=== PATIENT | female | born 1975 | race American Indian/Alaskan Native ===

== ENCOUNTER 2016-06-25 18:52 | Emergency (ER) | payer SELFPAY ==
--- NOTE | 2016-06-25 23:14 | Emergency Department Report ---
HPI - General Chief Complaint: Extremity Problem,Nontraumatic Time Seen by Provider: 06/25/16 22:59 - HPI HPI: Patient is a 42-year-old female who presents to ED complaining on the left side Knee and foot pain. She says she has a history of heel spurs on her left knee and is usually aggravated by standing for long period of time. Patient states she stands for long period of time at work and feels pain at the end of the shift. Patient also states she has a history of rheumatoid arthritis and was diagnosed last year. Patient states her pain started about 3 days ago. Patient also states she takes blood pressure medications and nausea medication. Patient admits fever, chills, trauma or fall, nausea, vomiting, headache, blurry vision, shortness of breath, chest pain or any other problems. ED Past Medical Hx - Past Medical History Previous Medical History?: Yes Hx Hypertension: Yes Hx GERD: Yes Hx Arthritis: Yes Hx Psychiatric Treatment: Yes (bipolar,manic depression) Additional medical history: fibroids,DJD,syncope,anemia - Surgical History Past Surgical History?: Yes Additional Surgical History: fibroid surgery, tubal - Social History Smoking Status: Current Every Day Smoker Substance Use Type: None - Medications Home Medications: Home Medications Medication Instructions Recorded Confirmed Last Taken Type Hydrochlorothiazide [Hctz] 12.5 mg PO QDAY #30 capsule 09/16/15 Unknown Rx Ibuprofen [Motrin 600 MG tab] 600 mg PO Q8H PRN #30 tablet 09/16/15 Unknown Rx Lisinopril [Zestril TAB] 10 mg PO QDAY #30 tablet 09/16/15 Unknown Rx Cyclobenzaprine [Flexeril 10 MG 10 mg PO QHS #20 tablet 06/26/16 Unknown Rx TAB] Ibuprofen [Motrin] 800 mg PO Q8HR PRN #30 tablet 06/26/16 Unknown Rx Meloxicam [Mobic] 7.5 mg PO BID #20 tablet 06/26/16 Unknown Rx ED Review of Systems ROS: Stated complaint: LT SIDE BODY PAIN Other details as noted in HPI Constitutional: denies: chills, fever Eyes: denies: eye pain, eye discharge, vision change ENT: denies: ear pain, throat pain Respiratory: denies: cough, shortness of breath, wheezing Cardiovascular: denies: chest pain, palpitations Endocrine: no symptoms reported Gastrointestinal: denies: abdominal pain, nausea, diarrhea Genitourinary: denies: urgency, dysuria, discharge Musculoskeletal: arthralgia, myalgia. denies: back pain, joint swelling Skin: denies: rash, lesions, pruritus Neurological: denies: headache, weakness, numbness, paresthesias, confusion, abnormal gait Psychiatric: denies: anxiety, depression Hematological/Lymphatic: denies: easy bleeding, easy bruising Physical Exam - Physical Exam Vital Signs: Vital Signs 06/25/16 19:53 Temperature 98.7 F Pulse Rate 78 Respiratory 18 Rate Blood Pressure 157/104 O2 Sat by Pulse 100 Oximetry Physical Exam: GENERAL: Alert and oriented x3, no apparent distress, Normal Gait, atraumatic. HEAD: Head is normocephalic and a-traumatic. EYES: Extra ocular muscles are intact. Pupils are equal, round, and reactive to light and accommodation. MOUTH:Mouth is well hydrated and without lesions Patent airways. NECK: Supple. Non edematous, No carotid bruits. No lymphadenopathy or thyromegaly. LUNGS: Symetrical with respiration, No wheezing, no rales or crackles, CTAB. HEART: S1, S2 present, regular rate and rhythm without murmur, no rubs, no gallops.. EXTREMITIES/MUSCULOSKELETAL: No cyanosis, clubbing, rash, lesions or edema. Full ROM bilaterally. UE/LE Pulses 2+ bilaterally. LE and UE 5+ strength bilaterally. Straight leg negative bilaterally tenderness. no calf Tenderness bilaterally NEUROLOGIC: No focal Deficit, Cranial nerves II through XII are grossly intact. No loss of sensation, PSYCHIATRIC: Mood is congruent with affect, denies suicidal or homicidal ideations. SKIN: Warm and dry, No lesions, No ulceration or induration present. ED Course Vital Signs 06/25/16 19:53 Temperature 98.7 F Pulse Rate 78 Respiratory 18 Rate Blood Pressure 157/104 O2 Sat by Pulse 100 Oximetry ED Medical Decision Making - Medical Decision Making 39 female presents with chronic arthritis pain. ED course: Patient received Toradol and Flexeril in ED. Patient states she has not taken her blood pressure medication today. Blood pressure decreased while in ED. Discussed the patient to go home and take her blood pressure medication. Patient verbalized understanding and agrees to do just that. Discussed follow-up with furniture painter specialist she states she has an appointment [facility] with her furniture painter next month. Discussed proper rest and take medication as prescribed. Patient is in no acute distress vital signs are normal. Critical care attestation.: If time is entered above; I have spent that time in minutes in the direct care of this critically ill patient, excluding procedure time. ED Disposition Clinical Impression: Myalgia, Arthritis pain of elbow Disposition: DISCHARGED TO HOME OR SELFCARE Is pt being admited?: No Does the pt Need Aspirin: No Condition: Stable Instructions: Trigger Point Pain (ED), Musculoskeletal Pain (ED), Heat Pack Application (ED) Prescriptions: Cyclobenzaprine [Flexeril 10 MG TAB] 10 mg PO QHS #20 tablet Ibuprofen [Motrin] 800 mg PO Q8HR PRN #30 tablet PRN Reason: Pain Meloxicam [Mobic] 7.5 mg PO BID #20 tablet Referrals: PRIMARY CAREMD [Primary Care Provider] - 3-5 Days KVNG GARCIA MD [Referring] - 3-5 Days SOLOMON LOMAX MD [Referring] - 3-5 Days [facility] [Outside] - 3-5 Days [facility] [Outside] - 3-5 Days [facility] [Outside] - 3-5 Days [facility] [Outside] - 3-5 Days Forms: Accompanied Note, Work/School Release Form(ED) Time of Disposition: 00:02
[2016-06-25] MEDS ORDERED: TORADOL IM ONE (23:55)
[2016-06-25] MEDS ORDERED: FLEXERIL PO ONE (23:55)
[2016-06-26 00:01] VITALS: BP 142/99
== END 2016-06-26 00:20 | disposition home or self-care (01) ==
LOC: ED 18:52
DX: M79.1 Myalgia (principal); M25.529 Pain in unspecified elbow; I10 Essential (primary) hypertension; K21.9 Gastro-esophageal reflux disease without esophagitis
CPT/HCPCS: 96372; 99282; J1885

== ENCOUNTER 2016-11-10 08:15 | Emergency (ER) | payer SELFPAY ==
[2016-11-10 09:07] LABS: Basophils % (Auto) 1.4 % (0.0-1.8); Eosinophils % (Auto) 1.9 % (0.0-4.3); Hematocrit 30.8 % (30.3-42.9); Hemoglobin 9.8 gm/dl (10.1-14.3); Mean Corpuscular HGB Conc 32 % (30-34); Mean Corpuscular Volume 81 fl (79-97); Platelet Count 327 K/mm3 (140-440); Red Blood Count 3.79 M/mm3 (3.65-5.03); Red Cell Distribution Width 19.3 % (13.2-15.2); White Blood Count 5.5 K/mm3 (4.5-11.0)
[2016-11-10 09:14] LABS: Mean Corpuscular Hemoglobin 26 pg (28-32)
[2016-11-10 09:24] LABS: Anion Gap 17 mmol/L; BUN/Creatinine Ratio 16.66; Blood Urea Nitrogen 10 mg/dL (7-17); Calcium 8.8 mg/dL (8.4-10.2); Carbon Dioxide 23 mmol/L (22-30); Chloride 100.6 mmol/L (98-107); Glucose 101 mg/dL (65-100); Potassium 3.7 mmol/L (3.6-5.0); Sodium 137 mmol/L (137-145)
[2016-11-10 09:30] LABS: INR 0.9 (0.87-1.13)
--- NOTE | 2016-11-10 10:54 | Emergency Department Report ---
ED Chest Pain HPI - General Chief Complaint: Chest Pain Stated Complaint: CHEST PAIN Time Seen by Provider: 11/10/16 10:41 Source: patient Mode of arrival: Ambulatory Limitations: No Limitations - History of Present Illness Initial Comments: Patient is a 41-year-old female here with complaint of chest pain since Tuesday. Patient states she reached behind the couch and laid heavily on her right breast and felt chest pain. The pain is centered behind her right breast. Worse with deep breath worse with movement and worse on palpation. Denies fevers chills. She states sometimes when she takes deep breath it feels hard to breathe. She denies complaints of leg pain. Never had a blood clot in the past no history of CAD. MD Complaint: chest pain -: Gradual Onset: during rest Pain Location: right chest Pain Radiation: none Severity: moderate Severity scale (0 -10): 7 Quality: tightness Consistency: constant Improves With: nothing Treatments Prior to Arrival: none - Related Data Home Medications Medication Instructions Recorded Confirmed Last Taken Vitamin D (Nf) 5,000 units PO 1XW 11/10/16 11/10/16 Unknown Previous Rx's Medication Instructions Recorded Last Taken Type Hydrochlorothiazide [Hctz] 12.5 mg PO QDAY #30 capsule 09/16/15 1 Day Ago Rx Lisinopril [Zestril TAB] 10 mg PO QDAY #30 tablet 09/16/15 1 Day Ago Rx Cyclobenzaprine [Flexeril 10 MG 10 mg PO QHS #20 tablet 06/26/16 1 Day Ago Rx TAB] Naproxen [Naprosyn TAB] 500 mg PO BID #30 tablet 11/10/16 Unknown Rx Allergies Allergy/AdvReac Type Severity Reaction Status Date / Time adhesive tape Allergy Rash Verified 11/10/16 08:45 Heart Score - HEART Score History: Slightly suspicious EKG: Normal Age: < 45 Risk factors: 1-2 risk factors Troponin: < normal limit HEART Score: 1 - Critical Actions Critical Actions: 0-3 pts:0.9-1.7%risk of adverse cardiac event.Candidate for discharge ED Review of Systems ROS: Stated complaint: CHEST PAIN Other details as noted in HPI Comment: All other systems reviewed and negative Constitutional: denies: chills, fever Eyes: denies: eye pain, eye discharge, vision change ENT: denies: ear pain, throat pain Respiratory: denies: cough, shortness of breath, wheezing Cardiovascular: denies: chest pain, palpitations Endocrine: no symptoms reported Gastrointestinal: denies: abdominal pain, nausea, diarrhea Genitourinary: denies: urgency, dysuria, discharge Musculoskeletal: denies: back pain, joint swelling, arthralgia Skin: denies: rash, lesions Neurological: denies: headache, weakness, paresthesias Psychiatric: denies: anxiety, depression Hematological/Lymphatic: denies: easy bleeding, easy bruising ED Past Medical Hx - Past Medical History Previous Medical History?: Yes Hx Hypertension: Yes Hx GERD: Yes Hx Arthritis: Yes Hx Psychiatric Treatment: Yes (bipolar,manic depression) Additional medical history: fibroids,DJD,syncope,anemia - Surgical History Past Surgical History?: Yes Additional Surgical History: fibroid surgery, tubal - Family History Family history: no significant - Social History Smoking Status: Current Every Day Smoker Substance Use Type: Marijuana - Medications Home Medications: Home Medications Medication Instructions Recorded Confirmed Last Taken Type Hydrochlorothiazide [Hctz] 12.5 mg PO QDAY #30 capsule 09/16/15 11/10/16 1 Day Ago Rx Lisinopril [Zestril TAB] 10 mg PO QDAY #30 tablet 09/16/15 11/10/16 1 Day Ago Rx Cyclobenzaprine [Flexeril 10 MG 10 mg PO QHS #20 tablet 06/26/16 11/10/16 1 Day Ago Rx TAB] Naproxen [Naprosyn TAB] 500 mg PO BID #30 tablet 11/10/16 Unknown Rx Vitamin D (Nf) 5,000 units PO 1XW 11/10/16 11/10/16 Unknown History ED Physical Exam - General Limitations: No Limitations General appearance: alert, in no apparent distress - Head Head exam: Present: atraumatic, normocephalic - Eye Eye exam: Present: normal appearance - ENT ENT exam: Present: mucous membranes moist - Neck Neck exam: Present: normal inspection - Respiratory Respiratory exam: Present: normal lung sounds bilaterally. Absent: respiratory distress - Cardiovascular Cardiovascular Exam: Present: regular rate, normal rhythm. Absent: systolic murmur, diastolic murmur, rubs, gallop - GI/Abdominal GI/Abdominal exam: Present: soft, normal bowel sounds - Extremities Exam Extremities exam: Present: normal inspection - Back Exam Back exam: Present: normal inspection - Neurological Exam Neurological exam: Present: alert, oriented X3 - Psychiatric Psychiatric exam: Present: normal affect, normal mood - Skin Skin exam: Present: warm, dry, intact, normal color. Absent: rash ED Course Vital Signs 11/10/16 11/10/16 11/10/16 08:36 10:19 12:31 Temperature 97.6 F 98.3 F Pulse Rate 66 55 L 49 L Respiratory 16 20 Rate Blood Pressure 106/69 Blood Pressure 100/60 [Left] O2 Sat by Pulse 100 100 Oximetry 11/10/16 12:37 Temperature 97.9 F Pulse Rate 58 L Respiratory 15 Rate Blood Pressure Blood Pressure 108/74 [Left] O2 Sat by Pulse 99 Oximetry ED Medical Decision Making - Lab Data Result diagrams: 11/10/16 08:53 11/10/16 08:53 Laboratory Results - last 24 hr 11/10/16 11/10/16 11/10/16 08:53 08:53 08:53 WBC 5.5 RBC 3.79 Hgb 9.8 L Hct 30.8 MCV 81 MCH 26 L MCHC 32 RDW 19.3 H Plt Count 327 Lymph % (Auto) 43.4 H Loving % (Auto) 8.7 H Eos % (Auto) 1.9 Baso % (Auto) 1.4 Lymph # 2.4 Loving # 0.5 Eos # 0.1 Baso # 0.1 Seg Neutrophils % 44.6 Seg Neutrophils # 2.4 PT 12.6 INR 0.90 Sodium 137 Potassium 3.7 Chloride 100.6 Carbon Dioxide 23 Anion Gap 17 BUN 10 Creatinine 0.6 L Estimated GFR > 60 BUN/Creatinine Ratio 16.66 Glucose 101 H Calcium 8.8 Troponin T < 0.010 - EKG Data -: EKG Interpreted by Ar - EKG Data 11/10/16 10:57 Normal sinus rate is [address]-T wave changes. - Medical Decision Making 41-year-old female here with complaint of right-sided chest pain. Likely related to recent movement. Denies fevers chills nausea vomiting. Pain is very atypical for cardiac ischemia. Plan d-dimer as patient is not PERC rule negative. D-dimer negative second troponin negative. Plan to discharge patient home with NSAIDs. Portions of this chart were dictated with dictation software. There may be dictation errors contained within this note. Critical care attestation.: If time is entered above; I have spent that time in minutes in the direct care of this critically ill patient, excluding procedure time. ED Disposition Clinical Impression: Musculoskeletal chest pain Disposition: TO HOME OR SELFCARE Is pt being admited?: No Condition: Stable Instructions: Chest Pain (ED) Prescriptions: Naproxen [Naprosyn TAB] 500 mg PO BID #30 tablet Referrals: PRIMARY CARE, [Primary Care Provider] - 3-5 Days
--- NOTE | 2016-11-10 11:29 | XRay Report ---
AP CHEST: HISTORY: chest pain AP view of the chest demonstrates a normal mediastinal and cardiac contour with clear lungs and normal bony and soft tissue structures. IMPRESSION: Unremarkable AP chest.
[2016-11-10 15:31] VITALS: BP 114/78
== END 2016-11-10 15:31 | disposition home or self-care (01) ==
LOC: ED 08:15
DX: R07.81 Pleurodynia (principal); I10 Essential (primary) hypertension; K21.9 Gastro-esophageal reflux disease without esophagitis; F31.9 Bipolar disorder, unspecified; F17.200 Nicotine dependence, unspecified, uncomplicated; F12.10 Cannabis abuse, uncomplicated
CPT/HCPCS: 36415; 71010; 80048; 84484; 85025; 85379; 85610; 93005; 93010

== ENCOUNTER 2017-05-07 10:34 | Emergency (ER) | payer SELFPAY ==
[2017-05-07 11:10] VITALS: BP 153/99
--- NOTE | 2017-05-07 12:18 | Emergency Department Report ---
ED Extremity Problem HPI - General Chief complaint: Extremity Injury, Upper Stated complaint: ARM PAIN Time Seen by Provider: 05/07/17 12:06 Source: patient Mode of arrival: Ambulatory Limitations: No Limitations - History of Present Illness Initial comments: Patient is a 42-year-old [place] female who presented with left wrist pain for the past 3-4 days. Patient denies any trauma. 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 The patient states that she has pain mostly at the base of the thumb and in the scaphoid region. Patient denies any other injury. Patient states as a throbbing pain is noted no relief with naproxen over-the- counter Severity scale (0 -10): 4 Consistency: constant - Related Data Home Medications Medication Instructions Recorded Confirmed Last Taken Vitamin D (Nf) 5,000 units PO 1XW 11/10/16 11/10/16 Unknown Previous Rx's Medication Instructions Recorded Last Taken Type Hydrochlorothiazide [Hctz] 12.5 mg PO QDAY #30 capsule 09/16/15 1 Day Ago Rx ~11/09/16 Lisinopril [Zestril TAB] 10 mg PO QDAY #30 tablet 09/16/15 1 Day Ago Rx ~11/09/16 Cyclobenzaprine [Flexeril 10 MG 10 mg PO QHS #20 tablet 06/26/16 1 Day Ago Rx TAB] ~11/09/16 Naproxen [Naprosyn TAB] 500 mg PO BID #30 tablet 11/10/16 Unknown Rx Ibuprofen [Motrin] 600 mg PO Q8H PRN #20 tablet 05/07/17 Unknown Rx traMADol [Ultram] 50 mg PO Q6HR PRN #12 tablet 05/07/17 Unknown Rx Allergies Allergy/AdvReac Type Severity Reaction Status Date / Time adhesive tape Allergy Rash Verified 11/10/16 08:45 ED Review of Systems ROS: Stated complaint: ARM PAIN Other details as noted in HPI Comment: All other systems reviewed and negative ED Past Medical Hx - Past Medical History Previous Medical History?: Yes Hx Hypertension: Yes Hx GERD: Yes Hx Arthritis: Yes Hx Psychiatric Treatment: Yes (bipolar,manic depression) Additional medical history: fibroids,DJD,syncope,anemia - Surgical History Past Surgical History?: Yes Additional Surgical History: fibroid surgery, tubal - Social History Smoking Status: Current Every Day Smoker Substance Use Type: Marijuana, Prescribed - Medications Home Medications: Home Medications Medication Instructions Recorded Confirmed Last Taken Type Hydrochlorothiazide [Hctz] 12.5 mg PO QDAY #30 capsule 09/16/15 11/10/16 1 Day Ago Rx ~11/09/16 Lisinopril [Zestril TAB] 10 mg PO QDAY #30 tablet 09/16/15 11/10/16 1 Day Ago Rx ~11/09/16 Cyclobenzaprine [Flexeril 10 MG 10 mg PO QHS #20 tablet 06/26/16 11/10/16 1 Day Ago Rx TAB] ~11/09/16 Naproxen [Naprosyn TAB] 500 mg PO BID #30 tablet 11/10/16 Unknown Rx Vitamin D (Nf) 5,000 units PO 1XW 11/10/16 11/10/16 Unknown History Ibuprofen [Motrin] 600 mg PO Q8H PRN #20 tablet 05/07/17 Unknown Rx traMADol [Ultram] 50 mg PO Q6HR PRN #12 tablet 05/07/17 Unknown Rx ED Physical Exam - General Limitations: No Limitations General appearance: alert, in no apparent distress - Head Head exam: Present: atraumatic, normocephalic - Eye Eye exam: Present: normal appearance - ENT ENT exam: Present: mucous membranes moist - Neck Neck exam: Present: normal inspection - Respiratory Respiratory exam: Present: normal lung sounds bilaterally. Absent: respiratory distress - Cardiovascular Cardiovascular Exam: Present: regular rate, normal rhythm. Absent: systolic murmur, diastolic murmur, rubs, gallop - GI/Abdominal GI/Abdominal exam: Present: soft, normal bowel sounds - Extremities Exam Extremities exam: Present: tenderness, other (patient has minimal swelling to the left wrist there is pain with movement of the thumb) - Back Exam Back exam: Present: normal inspection - Neurological Exam Neurological exam: Present: alert, oriented X3 - Psychiatric Psychiatric exam: Present: normal affect, normal mood - Skin Skin exam: Present: warm, dry, intact, normal color. Absent: rash ED Course Vital Signs 05/07/17 11:06 Temperature 97.8 F Pulse Rate 70 Respiratory 18 Rate Blood Pressure 153/99 O2 Sat by Pulse 100 Oximetry ED Medical Decision Making - Medical Decision Making Patient will be placed in a thumb spica splint and follow-up with orthopedic Critical care attestation.: If time is entered above; I have spent that time in minutes in the direct care of this critically ill patient, excluding procedure time. ED Disposition Clinical Impression: Left wrist sprain Qualifiers: Encounter type: initial encounter Qualified Code(s): S63.502A - Unspecified sprain of left wrist, initial encounter Disposition: TO HOME OR SELFCARE Is pt being admited?: No Does the pt Need Aspirin: No Condition: Stable Instructions: Wrist Injury (ED) Prescriptions: Ibuprofen [Motrin] 600 mg PO Q8H PRN #20 tablet PRN Reason: Pain traMADol [Ultram] 50 mg PO Q6HR PRN #12 tablet PRN Reason: Pain Referrals: PRIMARY CARE, [Primary Care Provider] - 3-5 Days
== END 2017-05-07 12:47 | disposition home or self-care (01) ==
LOC: ED 10:34
DX: S63.592A Other specified sprain of left wrist, initial encounter (principal); K21.9 Gastro-esophageal reflux disease without esophagitis; M19.90 Unspecified osteoarthritis, unspecified site; I10 Essential (primary) hypertension; F31.9 Bipolar disorder, unspecified; F17.200 Nicotine dependence, unspecified, uncomplicated; F12.10 Cannabis abuse, uncomplicated; X50.3XXA Overexertion from repetitive movements, initial encounter; Y93.89 Activity, other specified; Y92.89 Other specified places as the place of occurrence of the external cause; Y99.8 Other external cause status; Z88.8 Allergy status to other drugs, medicaments and biological substances

== ENCOUNTER 2017-06-15 15:25 | Emergency (ER) | payer SELFPAY ==
[2017-06-15 15:33] VITALS: BP 147/87
[2017-06-15] MEDS ORDERED: TORADOL IM ONE (16:21)
--- NOTE | 2017-06-15 16:31 | Emergency Department Report ---
ED Upper Extremity Inj HPI - General Chief Complaint: Extremity Problem,Nontraumatic Stated Complaint: LEFT HAND PAIN Time Seen by Provider: 06/15/17 16:14 Source: patient Mode of arrival: Ambulatory Limitations: No Limitations - History of Present Illness Initial Comments: This is a 42-year-old female nontoxic, well nourished in appearance, no acute signs of distress presents to the ED with c/o of left wrist pain x1 month. Patient stated she was diagnosed with carpal tunnel and was instructed to follow -up with the orthopedic doctor but denies following up. Patient denies any trauma. 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 Patient stated that pain is mostly in the wrist scaphoid region and radiates towards the base of the thumb. Patient denies any numbness, tingling, fever, chills, nausea, vomiting, headache or stiff neck. Patient denies any allergies. Past medical history includes arthritis, GERD and hypertension. MD Complaint: Injury to:: left, wrist -: month(s) (1) Other Extremity Injury: Wrist: Left Other Injuries: none Place: work Severity scale (0 -10): 8 Improves With: immobilization Worsens With: movement of extremity Associated Symptoms: denies other symptoms. denies: weakness, numbness, neck pain, suspects foreign body, nausea/vomiting, heard/felt popping sensat - Related Data Home Medications Medication Instructions Recorded Confirmed Last Taken Vitamin D (Nf) 5,000 units PO 1XW 11/10/16 11/10/16 Unknown Previous Rx's Medication Instructions Recorded Last Taken Type Hydrochlorothiazide [Hctz] 12.5 mg PO QDAY #30 capsule 09/16/15 1 Day Ago Rx ~11/09/16 Lisinopril [Zestril TAB] 10 mg PO QDAY #30 tablet 09/16/15 1 Day Ago Rx ~11/09/16 Cyclobenzaprine [Flexeril 10 MG 10 mg PO QHS #20 tablet 06/26/16 1 Day Ago Rx TAB] ~11/09/16 Naproxen [Naprosyn TAB] 500 mg PO BID #30 tablet 11/10/16 Unknown Rx Ibuprofen [Motrin] 600 mg PO Q8H PRN #20 tablet 05/07/17 Unknown Rx traMADol [Ultram] 50 mg PO Q6HR PRN #12 tablet 05/07/17 Unknown Rx Acetaminophen/Codeine [Tylenol 1 tab PO Q6H PRN #15 tab 06/15/17 Unknown Rx /Codeine # 3 tab] Prednisone [predniSONE 10 mg 10 mg PO .TAPER #1 tab.ds.pk 06/15/17 Unknown Rx (6-Day Pack, 21 Tabs)] Allergies Allergy/AdvReac Type Severity Reaction Status Date / Time adhesive tape Allergy Rash Verified 11/10/16 08:45 ED Review of Systems ROS: Stated complaint: LEFT HAND PAIN Other details as noted in HPI Constitutional: denies: chills, fever Eyes: denies: eye pain, eye discharge, vision change ENT: denies: ear pain, throat pain Respiratory: denies: cough, shortness of breath, wheezing Cardiovascular: denies: chest pain, palpitations Endocrine: no symptoms reported Gastrointestinal: denies: abdominal pain, nausea, diarrhea Genitourinary: denies: urgency, dysuria, discharge Musculoskeletal: arthralgia. denies: back pain, joint swelling Skin: denies: rash, lesions Neurological: denies: headache, weakness, paresthesias Psychiatric: denies: anxiety, depression Hematological/Lymphatic: denies: easy bleeding, easy bruising ED Past Medical Hx - Past Medical History Previous Medical History?: Yes Hx Hypertension: Yes Hx GERD: Yes Hx Arthritis: Yes Hx Psychiatric Treatment: Yes (bipolar,manic depression) Additional medical history: fibroids,DJD,syncope,anemia, Left carpel tunnel pain - Surgical History Past Surgical History?: Yes Additional Surgical History: fibroid surgery, tubal - Social History Smoking Status: Current Every Day Smoker Substance Use Type: Prescribed - Medications Home Medications: Home Medications Medication Instructions Recorded Confirmed Last Taken Type Hydrochlorothiazide [Hctz] 12.5 mg PO QDAY #30 capsule 09/16/15 11/10/16 1 Day Ago Rx ~11/09/16 Lisinopril [Zestril TAB] 10 mg PO QDAY #30 tablet 09/16/15 11/10/16 1 Day Ago Rx ~11/09/16 Cyclobenzaprine [Flexeril 10 MG 10 mg PO QHS #20 tablet 06/26/16 11/10/16 1 Day Ago Rx TAB] ~11/09/16 Naproxen [Naprosyn TAB] 500 mg PO BID #30 tablet 11/10/16 Unknown Rx Vitamin D (Nf) 5,000 units PO 1XW 11/10/16 11/10/16 Unknown History Ibuprofen [Motrin] 600 mg PO Q8H PRN #20 tablet 05/07/17 Unknown Rx traMADol [Ultram] 50 mg PO Q6HR PRN #12 tablet 05/07/17 Unknown Rx Acetaminophen/Codeine [Tylenol 1 tab PO Q6H PRN #15 tab 06/15/17 Unknown Rx /Codeine # 3 tab] Prednisone [predniSONE 10 mg 10 mg PO .TAPER #1 tab.ds.pk 06/15/17 Unknown Rx (6-Day Pack, 21 Tabs)] ED Physical Exam - General Limitations: No Limitations General appearance: alert, in no apparent distress - Head Head exam: Present: atraumatic, normocephalic - Eye Eye exam: Present: normal appearance Pupils: Present: normal accommodation - ENT ENT exam: Present: normal exam, mucous membranes moist - Neck Neck exam: Present: normal inspection, full ROM. Absent: tenderness, meningismus - Respiratory Respiratory exam: Present: normal lung sounds bilaterally. Absent: respiratory distress, wheezes, rales, rhonchi, stridor, chest wall tenderness, accessory muscle use, decreased breath sounds, prolonged expiratory - Cardiovascular Cardiovascular Exam: Present: regular rate, normal rhythm, normal heart sounds. Absent: irregular rhythm, systolic murmur, diastolic murmur, rubs, gallop - GI/Abdominal GI/Abdominal exam: Present: soft, normal bowel sounds - Rectal Rectal exam: Present: deferred - Extremities Exam Extremities exam: Present: normal inspection, full ROM, tenderness, normal capillary refill. Absent: pedal edema, joint swelling, calf tenderness - Expanded Upper Extremity Exam Left General: Present: normal inspection Shoulder Exam: Present: normal inspection, full ROM Upper Arm exam: Present: normal inspection, full ROM Elbow exam: Present: normal inspection, full ROM. Absent: tenderness, swelling Forearm Wrist exam: Present: normal inspection, full ROM, tenderness. Absent: swelling, abrasion, laceration, ecchymosis, deformity, crepidus, dislocation, erythema, tenderness over anatomical snuff box, pain with axial thumb loading Hand Wrist exam: Present: normal inspection, full ROM, tenderness. Absent: swelling, abrasion, laceration, ecchymosis, deformity, crepidus, dislocation, erythema, amputation, nail avulsion, subungual hematoma Hand L/R Front: 1 - Positive: other (tenderness), normal inspection Neuro motor exam: Present: wrist extension intact, thumb opposition intact, thumb IP flexion intact, thumb adduction intact, fingers 2-5 abduction intact Neurosensory exam: Present: 2-point discrimination, radial nerve intact, ulnar nerve intact, median nerve intact Vascular: Present: vascular compromise, normal capillary refill, radial pulse, brachial pulse, ulnar pulse - Back Exam Back exam: Present: normal inspection, full ROM - Neurological Exam Neurological exam: Present: alert, oriented X3, normal gait - Psychiatric Psychiatric exam: Present: normal affect, normal mood - Skin Skin exam: Present: warm, dry, intact, normal color. Absent: rash - Other Other exam information: Positive phalen's and tinel's test. ED Course Vital Signs 06/15/17 15:29 Temperature 97.6 F Pulse Rate 81 Respiratory 20 Rate Blood Pressure 147/87 O2 Sat by Pulse 100 Oximetry - Reevaluation(s) Reevaluation #1: 06/15/17 16:37 Patient is speaking in full sentences with no signs of distress noted. ED Medical Decision Making - Medical Decision Making This is a 42-year-old female that presents with carpal tunnel syndrome. Patient is stable and was examined by me. XRay has been obtained and dictated by the radiologist within normal limits expect old fracutre of the digits. Patient stated had fractures in those regions years ago. Patient is notified of the xray results with no questions noted. There is a positive phalen's and tinel's test. There is no joint swelling, joint redness or any signs of cellulitis. Patient received Toradol 30 mg IM and ED which pasted his symptoms are improving subsided. Patient is discharged with Tylenol 3 and prednisone. Patient has a thumb spica splint velcro on so patient was instructed to continue wearing this. Patient was referred and instructed to Follow-up with a orthopedic doctor in 3-5 days or if symptoms worsen and continue return to emergency room as soon as possible. At time of discharge, the patient does not seem toxic or ill in appearance. No acute signs of distress noted. Patient agrees to discharge treatment plan of care. No further questions noted by the patient. Critical care attestation.: If time is entered above; I have spent that time in minutes in the direct care of this critically ill patient, excluding procedure time. ED Disposition Clinical Impression: Carpal tunnel syndrome Qualifiers: Laterality: left Qualified Code(s): G56.02 - Carpal tunnel syndrome, left upper limb Osteoarthritis Qualifiers: Osteoarthritis location: wrist Osteoarthritis type: unspecified Laterality: left Qualified Code(s): M19.032 - Primary osteoarthritis, left wrist Disposition: TO HOME OR SELFCARE Is pt being admited?: No Does the pt Need Aspirin: No Condition: Stable Instructions: Osteoarthritis (ED), Carpal Tunnel Syndrome (ED), Prednisone (By mouth) Additional Instructions: Follow-up with a orthopedic doctor in 3-5 days or if symptoms worsen and continue return to emergency room as soon as possible. Prescriptions: Acetaminophen/Codeine [Tylenol /Codeine # 3 tab] 1 tab PO Q6H PRN #15 tab PRN Reason: Pain Prednisone [predniSONE 10 mg (6-Day Pack, 21 Tabs)] 10 mg PO .TAPER #1 tab.ds.pk Referrals: PRIMARY MD EMIL [Primary Care Provider] - 3-5 Days MEGAN ALFRED MD [Staff Physician] - 3-5 Days [facility] [Outside] - 3-5 Days [facility] [Outside] - 3-5 Days Forms: Work/School Release Form(ED)
--- NOTE | 2017-06-15 16:58 | XRay Report ---
FINAL REPORT EXAM: XR HAND 3+V LT HISTORY: LEFT hand/wrist pain TECHNIQUE: AP, lateral, and oblique portable views of the left hand PRIORS: None. FINDINGS: Involving the 3rd distal interphalangeal joint, there is a small focal area of swelling along the ulnar aspect with a well-defined bony fragment, probably remote. There appears to be a focal erosion of the distal aspect of the middle phalanx and base of the distal phalanx as well with well-defined sclerotic borders. Findings are likely due to either remote avulsion fracture and subsequent osteoarthritis or possible treated gout. There is no evidence for acute fracture or dislocation. No other soft tissue swelling or radiopaque foreign bodies are seen. Bony mineralization is normal and joint spaces are maintained. IMPRESSION: Findings involving the 3rd distal interphalangeal joint which should be correlated clinically. Differential includes a remote avulsion fracture in subsequent osteoarthritis or possible treated gout. Otherwise, no acute soft tissue or bony abnormality noted.
== END 2017-06-15 17:34 | disposition home or self-care (01) ==
LOC: ED 15:25
DX: G56.02 Carpal tunnel syndrome, left upper limb (principal); M19.032 Primary osteoarthritis, left wrist; I10 Essential (primary) hypertension; K21.9 Gastro-esophageal reflux disease without esophagitis; F31.9 Bipolar disorder, unspecified; F17.200 Nicotine dependence, unspecified, uncomplicated
CPT/HCPCS: 73130; 96372; 99283; J1885